=== PATIENT | female | born 1945 | race Caucasian/White ===

== ENCOUNTER 2019-10-28 11:13 | Emergency (ER) | payer OTHER ==
--- NOTE | 2019-10-28 11:55 | ER ---
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 Transition of care: patient was not received from another setting of care. Onset of symptoms was October 28, 2019. Risk Assessment: Do you want to hurt yourself or someone else? Patient reports no desire to harm self or others. Initial Sepsis Screen: Does the patient meet any 2 criteria? No. Patient's initial sepsis screen is negative. Does the patient have a suspected source of infection? No. Patient's initial sepsis screen is negative. Care prior to arrival: None. 11:28 Method Of Arrival: Ambulatory tw2 11:28 Acuity: SEVERINO 4 tw2 Triage Assessment: 11:29 General: Appears in no apparent distress. well groomed, Behavior is calm, cooperative, tw2 appropriate for age. Pain: Complains of pain in right hip. : Reports burning with urination, since this morning. Historical: - Allergies: 11:31 No Known Allergies; tw2 - Home Meds: 11:31 gabapentin 600 mg oral tab 1 tab twice a day [Active]; Effexor XR 75 mg Oral cp24 1 cap tw2 once daily [Active]; lisinopril 5 mg Oral tab 1 tab once daily [Active]; - PMHx: 11:31 neuropathy; Depression; Hypertension; tw2 - Immunization history:: Adult Immunizations. - Social history:: Smoking status: . - Ebola Screening: : Patient denies travel to an Ebola-affected area in the 21 days before illness onset. Screenin:31 Abuse screen: Denies threats or abuse. Nutritional screening: No deficits noted. tw2 Tuberculosis screening: No symptoms or risk factors identified. Fall Risk Secondary diagnosis (15 points) impaired mobility. Assessment: 12:00 General: Appears in no apparent distress. comfortable, Behavior is calm, cooperative, em Denies fever. Pain: Complains of pain in right low back Pain currently is 10 out of 10 on a pain scale. Neuro: Level of Consciousness is awake, alert, obeys commands, Oriented to person, place, time, situation, Appropriate for age. Cardiovascular: Capillary refill < 3 seconds Patient's skin is warm and dry. Respiratory: Airway is patent Respiratory effort is even, unlabored, Respiratory pattern is regular, symmetrical. : Reports burning with urination. Derm: Skin is intact, is healthy with good turgor, Skin is pink, warm \T\ dry. Musculoskeletal: Capillary refill < 3 seconds, Range of motion: intact in all extremities. 12:30 Reassessment: Patient appears in no apparent distress at this time. Patient and/or em family updated on plan of care and expected duration. Pain level reassessed. Patient is alert, oriented x 3, equal unlabored respirations, skin warm/dry/pink. Patient states feeling better. Vital Signs: 11:30 BP 124 / 82; Pulse 75; Resp 17; Temp 97.8(TE); Pulse Ox 95% on R/A; Weight 79.38 kg tw2 (R); Height 5 ft. 5 in. (165.10 cm); Pain 10/10; 11:30 Body Mass Index 29.12 (79.38 kg, 165.10 cm) tw2 ED Course: 11:16 Patient arrived in ED. am2 11:29 Triage completed. tw2 11:30 Arm band placed on. tw2 11:32 Bed in low position. Call light in reach. tw2 11:33 Lich[facility]C [facility]. kb 11:33 Danisha Quinn MD is Attending Physician. kb 11:44 Corby Tidwell LVN is Primary Nurse. em 12:30 No provider procedures requiring assistance completed. Patient did not have IV access em during this emergency room visit. Administered Medications: 12:04 Drug: Pyridium 200 mg Route: PO; em 12:30 Follow up: Response: No adverse reaction em 12:05 Drug: TORadol 30 mg Route: IM; Site: left deltoid; em 12:30 Follow up: Response: No adverse reaction; Marked relief of symptoms; Pain is decreased em 12:05 Drug: Macrobid 100 mg Route: PO; em 12:41 Follow up: Response: No adverse reaction em Outcome: 11:54 Discharge ordered by . tiffany 12:30 Discharged to home ambulatory, with family. em 12:30 Condition: good 12:30 Discharge instructions given to patient, family, Instructed on discharge instructions, follow up and referral plans. medication usage, Demonstrated understanding of instructions, follow-up care, medications, Prescriptions given X 4. 12:32 Patient left the ED. kb Addendum: 10/31/2019 07:39 Addendum: Culture Results: Positive urine culture. No further action required. Bacteria e b sensitive to prescribed antibiotic. Signatures: Licha Gonzalez, STEEL DIVISION SUPERVISOR-C STE[employer] DIVISION SUPERVISOR-Ckb Corby Tidwell, HANDY MAN HANDY MAN Ana Christianson RN RN tw2 Lashonda Cowan am2 Constanza Hamilton
--- NOTE | 2019-10-28 11:56 | EDPHYS ---
Physician Documentation [facility] Name: Yenny Gordon Age: 74 yrs Sex: Female : 1945 Arrival Date: 10/28/2019 Time: 11:16 Bed 28 Private MD: ED Physician Danisha Quinn HPI: 10/28 11:52 This 74 yrs old Female presents to ER via Ambulatory with complaints of kb Urinary Problem. 11:52 The patient presents with urinary symptoms, dysuria. Onset: The symptoms/episode kb began/occurred today. Modifying factors: The symptoms are alleviated by nothing, the symptoms are aggravated by urinating. Associated signs and symptoms: Pertinent positives: dysuria. Severity of symptoms: At their worst the symptoms were moderate, in the emergency department the symptoms are unchanged. The patient has experienced similar episodes in the past, a few times. The patient has not recently seen a physician. "I have a UTI and a pinched nerve." States she started having burning with urination today and has had pain to right lower back that radiates down right leg for a week. . Historical: - Allergies: 11:31 No Known Allergies; tw2 - Home Meds: 11:31 gabapentin 600 mg oral tab 1 tab twice a day [Active]; Effexor XR 75 mg Oral cp24 1 cap tw2 once daily [Active]; lisinopril 5 mg Oral tab 1 tab once daily [Active]; - PMHx: 11:31 neuropathy; Depression; Hypertension; tw2 - Immunization history:: Adult Immunizations. - Social history:: Smoking status: . - Ebola Screening: : Patient denies travel to an Ebola-affected area in the 21 days before illness onset. ROS: 11:51 Constitutional: Negative for fever, chills, and weight loss, ENT: Negative for injury, kb pain, and discharge, Neck: Negative for injury, pain, and swelling, Cardiovascular: Negative for chest pain, palpitations, and edema, Respiratory: Negative for shortness of breath, cough, wheezing, and pleuritic chest pain, Abdomen/GI: Negative for abdominal pain, nausea, vomiting, diarrhea, and constipation, MS/Extremity: Negative for injury and deformity, Skin: Negative for injury, rash, and discoloration, Neuro: Negative for headache, weakness, numbness, tingling, and seizure. 11:51 Back: Positive for pain at rest, radiated pain. 11:51 : Positive for burning with urination. Exam: 11:51 Constitutional: This is a well developed, well nourished patient who is awake, alert, kb and in no acute distress. Head/Face: Normocephalic, atraumatic. ENT: Nares patent. No nasal discharge, no septal abnormalities noted. Tympanic membranes are normal and external auditory canals are clear. Oropharynx with no redness, swelling, or masses, exudates, or evidence of obstruction, uvula midline. Mucous membranes moist. Neck: Trachea midline, no thyromegaly or masses palpated, and no cervical lymphadenopathy. Supple, full range of motion without nuchal rigidity, or vertebral point tenderness. No Meningismus. Chest/axilla: Normal chest wall appearance and motion. Nontender with no deformity. No lesions are appreciated. Cardiovascular: Regular rate and rhythm with a normal S1 and S2. No gallops, murmurs, or rubs. Normal PMI, no JVD. No pulse deficits. Respiratory: Lungs have equal breath sounds bilaterally, clear to auscultation and percussion. No rales, rhonchi or wheezes noted. No increased work of breathing, no retractions or nasal flaring. Abdomen/GI: Soft, non-tender, with normal bowel sounds. No distension or tympany. No guarding or rebound. No evidence of tenderness throughout. Skin: Warm, dry with normal turgor. Normal color with no rashes, no lesions, and no evidence of cellulitis. MS/ Extremity: Pulses equal, no cyanosis. Neurovascular intact. Full, normal range of motion. Neuro: Awake and alert, GCS 15, oriented to person, place, time, and situation. Cranial nerves II-XII grossly intact. Motor strength 5/5 in all extremities. Sensory grossly intact. Cerebellar exam normal. Normal gait. 11:51 Back: pain, that is moderate, of the right low back. Vital Signs: 11:30 BP 124 / 82; Pulse 75; Resp 17; Temp 97.8(TE); Pulse Ox 95% on R/A; Weight 79.38 kg tw2 (R); Height 5 ft. 5 in. (165.10 cm); Pain 10/10; 11:30 Body Mass Index 29.12 (79.38 kg, 165.10 cm) tw2 MDM: 11:33 Patient medically screened. kb 11:51 Data reviewed: vital signs, nurses notes. Data interpreted: Pulse oximetry: on room air kb is 95 %. Interpretation: normal. Counseling: I had a detailed discussion with the patient and/or guardian regarding: the historical points, exam findings, and any diagnostic results supporting the discharge/admit diagnosis, lab results, the need for outpatient follow up, a family practitioner, to return to the emergency department if symptoms worsen or persist or if there are any questions or concerns that arise at home. 10/28 11:33 Order name: Urine Microscopic Only kb 10/28 11:46 Order name: Urine Dipstick--Ancillary (enter results) bd 10/28 12:03 Order name: Urine Microscopic Only; Complete Time: 12:05 EDMS 10/28 11:33 Order name: Urine Dipstick-Ancillary (obtain specimen); Complete Time: 11:52 kb Administered Medications: 12:04 Drug: Pyridium 200 mg Route: PO; em 12:30 Follow up: Response: No adverse reaction em 12:05 Drug: TORadol 30 mg Route: IM; Site: left deltoid; em 12:30 Follow up: Response: No adverse reaction; Marked relief of symptoms; Pain is decreased em 12:05 Drug: Macrobid 100 mg Route: PO; em 12:41 Follow up: Response: No adverse reaction em Disposition: 17:21 Co-signature as Attending Physician, Danisha Quinn MD. ma2 Disposition: 10/28/19 11:54 Discharged to Home. Impression: Sciatica, right side, Urinary tract infection, site not specified. - Condition is Stable. - Discharge Instructions: Urinary Tract Infection, Adult, [id number], Sciatica, [id number], Back Exercises, [id number]. - Prescriptions for Pyridium 200 mg Oral Tablet - take 1 tablet by ORAL route every 8 hours for 3 days; 9 tablet. Skelaxin 800 mg Oral Tablet - take 1 tablet by ORAL route every 8 hours As needed; 21 tablet. Macrobid 100 mg Oral Capsule - take 1 capsule by ORAL route every 12 hours for 10 days; 20 capsule. Diclofenac Sodium 75 mg Oral Tablet, Delayed Release (E.C.) - take 1 tablet by ORAL route 2 times per day As needed; 30 tablet. - Medication Reconciliation Form, Thank You Letter, Antibiotic Education, Prescription Opioid Use form. - Follow up: Emergency Department; When: As needed; Reason: Worsening of condition. Follow up: Private Physician; When: 2 - 3 days; Reason: Recheck today's complaints, Continuance of care, Re-evaluation by your physician. Signatures: Dispatcher [employer] EDLicha Marie, GONZALO-Jesica MILLERP-Corby Oneal, TENTER FEEDER TENTER FEEDER Ana Christianson RN RN tw2 Danisha Quinn MD MD ma2 Corrections: (The following items were deleted from the chart) 12:32 11:54 10/28/2019 11:54 Discharged to Home. Impression: Sciatica, right side; Urinary kb tract infection, site not specified. Condition is Stable. Forms are Medication Reconciliation Form, Thank You Letter, Antibiotic Education, Prescription Opioid Use. Follow up: Emergency Department; When: As needed; Reason: Worsening of condition. Follow up: Private Physician; When: 2 - 3 days; Reason: Recheck today's complaints, Continuance of care, Re-evaluation by your physician. kb
[2019-10-28] MEDS ORDERED: KETOROLAC 30 MG/ML INJ ONE (12:00)
[2019-10-28] MEDS ORDERED: PHENAZOPYRIDINE 100MG TAB PO ONE (12:00)
[2019-10-28] MEDS ORDERED: NITROFURAN MACRO 100 MG CAP PO ONE (12:00)
[2019-10-28 12:03] LABS: Urine Bacteria 20-50 /HPF (<20); Urine Culture Reflex Order REFLEXED; Urine RBC >50 /HPF (NONE SEEN)
[2019-10-28 12:41] VITALS: BP 124/82; TEMP 97.8; O2SAT 95
[2019-10-28 16:44] LABS: Urine Blood 3+ (NEG); Urine Glucose NEGATIVE (NEG); Urine Protein 1+ (NEG); Urine Specific Gravity 1.015 (1.005-1.030); Urine pH 5.5 (5.0-7.0)
== END 2019-10-28 12:32 | disposition home or self-care (01) ==
LOC: ER 11:13
DX: N39.0 Urinary tract infection, site not specified (principal); M54.31 Sciatica, right side; I10 Essential (primary) hypertension; F32.9 Major depressive disorder, single episode, unspecified
CPT/HCPCS: 81003; 81015; 87077; 87086; 87088; 87186; 96372; 99283